=== PATIENT | female | born 1945 | race Caucasian/White ===

== ENCOUNTER 2017-03-31 12:57 | Outpatient (CLI) | payer OTHER ==
[~2017-03-31 12:57] MED LIST: ACIDOPHILUS1 CHW; B12-ACTIVE1 MG PO; CELEBREX200 MG PO; CLOBETASOL PRO0.051 TOP; COQ PO; COZAAR25 MG PO; CRANBERRY300 MG PO; CYCLOBENZAPRINE10 MG PO; FLOVENT HFA110 MCG IN; GLUCOSAMINE500 M1 PO; LIPITOR40 MG PO; METOPROLOL SUCC50 MG PO; OMEGA-3 KRILL500 MG PO; OPTIFLEX-C400 MG PO; PIROXICAM10 MG PO; PREMARIN0.3 MG PO; PROVENTIL HFA IN; RANITIDINE ACID75 MG PO; VITAMIN D-31000 UNIT PO; ZANTAC 150 MAX150 MG PO; [UNRECOGNIZED DRUG - CODE] PO
--- NOTE | 2017-03-31 17:42 | DIAGNOSTIC IMAGING REPORT ---
REFERRING PHYSICIAN/PROVIDER: Crystal [facility] CONSULTING WREATH MACHINE TENDER: Brenda Connell MD PROCEDURE: Echocardiogram TECHNICAL QUALITY: Fair INDICATION: ELEVATED BNP LEVEL RHYTHM DURING PROCEDURE: sinus bradycardia; heart rate is 48 - 50 beats per minute INTERPRETATIONS: LEFT VENTRICLE: Normal LV size, mild concentric left ventricular hypertrophy. Interventricular septum is 1.2 cm. Normal wall motion and left ventricular systolic function. Ejection fraction of 60 - 65%. MITRAL VALVE: Mitral valve leaflets are normal. There is mild mitral regurgitation AORTIC VALVE: Aortic valve leaflets demonstrate mild sclerosis without significant stenosis. TRICUSPID VALVE: Tricuspid valve leaflets are normal with trace central tricuspid regurgitation. Estimated pulmonary artery systolic pressure is 49 mmHg assuming right atrial pressure of 8 mmHg PULMONIC VALVE: Not visualized CHAMBERS: Mild left atrial enlargement. Left atrium is 4.3 cm in parasternal long axis view GREAT VESSELS: Inferior vena cava is 2.1 cm and demonstrates appropriate respiratory collapse. Estimated right atrial pressure is 5 - 10 mmHg. Aortic root measures 2 cm diameter( normal) IMPRESSION: 1. Sinus bradycardia; recommend medication titration. If the patient is not on any beta bryant nor non-dihydropyridine calcium channel blockers recommend cardiology consultation 2. Normal LV size, mild concentric LVH, normal wall motion and ventricular systolic function. 3. Mild left atrial enlargement. Otherwise normal chamber sizes. 4. No significant valvular abnormalities.
== END 2017-03-31 23:00 ==
LOC: US SRH 12:57
DX: I51.7 Cardiomegaly (principal); R00.1 Bradycardia, unspecified